=== PATIENT | female | born 1960 | race Caucasian/White ===

== ENCOUNTER → 2017-02-15 | Outpatient (CLI) | payer OTHER ==
[~2017-02-15] MED LIST: ASPI-1085 PO; CYCL-375 PO; ESOM40CA PO; HYDR-4078 PO; SIMV40TA5 PO; SUCR1TAB20 PO
--- NOTE | 2017-02-15 07:49 | DI ---
EXAM: US LIVER (HEPATIC) LOCATION OF DICTATION: [place] HISTORY: ITS.REASON: B19.20 UNSPECIFIED VIRAL HEPATITIS C COMPARISON: No prior studies available for comparison. Multiple real-time grayscale sonographic images were obtained of the abdomen with and without color flow. FINDINGS: Multiple real-time grayscale sonographic images were obtained of the abdomen with and without color flow. Hepatic parenchyma is homogeneous without evidence for focal mass. The liver measures 14.52 cm. The gallbladder is normal. There is no wall thickening, pericholecystic fluid, sonographic Singer's sign or cholelithiasis. Gallbladder wall measures 0.22 cm. Both the intra and extrahepatic biliary system are of normal caliber with the common duct measuring 0.49 cm in diameter. Visualized portions of the head and body of the pancreas are unremarkable. The right kidney is present without collecting system dilatation. The right kidney measures 8.5 x 3.6 x 4.0 cm. IMPRESSION: 1. The liver is within normal limits. Gallbladder and biliary ducts are unremarkable. .
== END ==
LOC: IMA 06:30
PROVIDERS: ATTEND Internal Medicine Gastroenterology
DX: B19.20 Unspecified viral hepatitis C without hepatic coma (principal)

== ENCOUNTER → 2017-03-03 | Outpatient (CLI) | payer OTHER ==
[2017-03-05 03:31] LABS: HEPATITIS B SURFACE AG - BATCH NEGATIVE (NEGATIVE)
[2017-03-05 03:37] LABS: HEPATITIS A ANTIBODY IGM-BATCH NEGATIVE (NEGATIVE)
[2017-03-05 03:49] LABS: HEPATITIS C VIRUS AB-BATCH POSITIVE (NEGATIVE)
== END ==
LOC: LAB 15:04
PROVIDERS: ATTEND Family Medicine
DX: B19.20 Unspecified viral hepatitis C without hepatic coma (principal)
CPT/HCPCS: 36415; 80074; 80307; 82172; 82247; 82977; 83010; 83883; 84460; 86703; 86707; 86708; 87522